=== PATIENT | male | born 2005 | race Two or more races ===

== ENCOUNTER 2024-11-13 14:51 | Inpatient (IN) | payer OTHER ==
[~2024-11-13] VITALS: Ht 175.3 cm; Wt 132.0 kg
--- NOTE | 2024-11-13 16:09 | NUR ---
SE RECIBE PTE ALERTA Y ORIENTADO X3 EL MISMO REFIERE DIARREAS X2 EN EL GAGE DE [place] Y PRESENTAR LAS MISMAS DESDE HACE SEMANAS. PRESENTA REFERIDO MEDICO DE DRA KEEGAN VALDEZ LA CUAL REFIERE QUE PTE QUE PTE PRESENTA CALCULUS OF GALLBLADDER WT CHRONIC CHOLECYSTITIS WT OBSTUCTION. SE ENTREGA REFERIDO MEDICO A DR AHUMADA Y SE ACOMODA PTE.
[2024-11-13] MEDS ORDERED: 0.9 % SODIUM CHLORIDE 500 ML IV ONE (16:30)
--- NOTE | 2024-11-13 17:00 | NUR ---
SE ORIENTA SOBRE TX A SGEUIR, LA MISMA REFIERE ENTENDER. SE SALONI MUESTRA DE LAB, SE CANALIZA Y SE COLOCA IV FLUIDS
[2024-11-13 17:04] LABS: HEMATOCRIT 43.9 % (39.0-48.0); MEAN CELL VOLUME 84.8 fL (80.0-100.00); MEAN CORPUSCULAR HGB CONC 34.2 g/dl (32.0-36.0); PLATELET COUNT 245 K/uL (150-450); RED BLOOD COUNT 5.18 M/uL (4.00-6.00); RED CELL DISTRIBUTION WIDTH 14.8 % (11.5-14.5)
[2024-11-13 17:25] LABS: ALBUMIN 3.8 gm/dL (3.4-5.0); BILIRUBIN TOTAL 7.87 mg/dL (0.3-1.2); BILIRUBIN,CONJUGATED 5.94 mg/dL (0.0-0.2); BILIRUBIN,UNCONJUGATED 1.93 mg/dL (0.0-0.6); CALCIUM 10.2 mg/dL (8.5-10.1); CREATININE SERUM 1.02 mg/dL (0.70-1.30); GFR 92.19; POTASSIUM 4.21 mEq/L (3.5-5.1); TOTAL PROTEIN 8.8 gm/dL (6.4-8.2)
[2024-11-13] MEDS ORDERED: PIPERACILLIN/TAZOBACTAM SODIUM 3.375 GM in DEXTROSE 5 % IN WATER 100 ML IV SCH (19:07)
[2024-11-13] MEDS ORDERED: FAMOTIDINE/PF 20 MG in 0.9 % SODIUM CHLORIDE 8 ML IV PUSH SCH (19:07)
[2024-11-13] MEDS ORDERED: ONDANSETRON HCL 4 MG in 0.9 % SODIUM CHLORIDE 50 ML IV PRN (19:15)
[2024-11-13] MEDS ORDERED: KETOROLAC TROMETHAMINE 30 MG VIAL IU PRN (19:15)
[2024-11-13] MEDS ORDERED: 0.9 % SODIUM CHLORIDE 1,000 ML IV SCH (19:15)
[2024-11-13 20:13] LABS: PH,URINE 5.5 (5.0-8.0); URINE APPEARANCE Clear; URINE BILIRRUBIN Large (NEGATIVE); URINE BLOOD Negative; URINE COLOR Dark Yellow; URINE GLUCOSE Negative (NEGATIVE); URINE KETONE Trace (NEGATIVE); URINE LEUKOCYTE Trace; URINE NITRATE Negative; URINE PROTEIN Trace (NEGATIVE); URINE UROBILINOGEN 0.2 E.U./dl
[2024-11-13 20:17] LABS: URINE BACTERIA 36.7 uL (0.0-1933); URINE EPITHELIAL CELLS 5.3 uL (0.0-38.8); URINE RBC 10.4 uL (0.0-20.8); URINE WBC 5.2 uL (0.0-23.2)
[2024-11-13 20:53] LABS: URINE CAST 0.58 uL (0.0-1.40)
[2024-11-13 21:23] LABS: INR 1.14; PARTIAL THROMBOPLASTIN TIME 29.8 SECONDS (22.0-34.0); PROTHROMBIN TIME 12.3 SECONDS (9.0-11.5)
[2024-11-13 23:47] VITALS: BP 122/74; O2SAT 99
[2024-11-14] MEDS ORDERED: FAMOTIDINE/PF 20 MG in 0.9 % SODIUM CHLORIDE 8 ML IV PUSH SCH (21:00)
[2024-11-14 21:04] VITALS: BP 120/70; O2SAT 96
[2024-11-15 01:42] VITALS: BP 139/79; O2SAT 98
[2024-11-15 08:38] VITALS: BP 123/75; O2SAT 97
[2024-11-15] MEDS ORDERED: SUGAMMADEX SODIUM 200 MG/2 ML VIAL IV ONE (16:15)
[2024-11-15] MEDS ORDERED: IOVERSOL 320 MG/ML - 50 ML VIAL IV ONE (16:15)
[2024-11-15] MEDS ORDERED: GLUCAGON 1 MG VIAL IV ONE (16:15)
[2024-11-15 17:52] VITALS: BP 132/65; O2SAT 100
[2024-11-16 02:40] VITALS: BP 133/67; O2SAT 95
[2024-11-16 08:39] VITALS: BP 106/67; O2SAT 96
[2024-11-16 16:35] VITALS: BP 141/90
[2024-11-16 18:20] LABS: HEMATOCRIT 40.4 % (39.0-48.0); HEMOGLOBIN 13.8 g/dL (13-16.00); MEAN CELL VOLUME 85.6 fL (80.0-100.00); MEAN CORPUSCULAR HEMOGLOBIN 29.2 pg (27.00-32.0); MEAN CORPUSCULAR HGB CONC 34.1 g/dl (32.0-36.0); PLATELET COUNT 216 K/uL (150-450); RED BLOOD COUNT 4.72 M/uL (4.00-6.00); RED CELL DISTRIBUTION WIDTH 14.8 % (11.5-14.5)
[2024-11-16 19:18] LABS: ALBUMIN 3.5 gm/dL (3.4-5.0); BILIRUBIN,CONJUGATED 8.49 mg/dL (0.0-0.2); BILIRUBIN,UNCONJUGATED 2.1 mg/dL (0.0-0.6); CALCIUM 9.5 mg/dL (8.5-10.1); CREATININE SERUM 1.11 mg/dL (0.70-1.30); GFR 83.62; GLOBULINA 3.8 G/DL (2.4-3.5); POTASSIUM 4.31 mEq/L (3.5-5.1); TOTAL PROTEIN 7.3 gm/dL (6.4-8.2)
[2024-11-16 19:31] LABS: BILIRUBIN TOTAL 10.59 mg/dL (0.3-1.2)
[2024-11-17 01:02] VITALS: BP 133/77; O2SAT 99
[2024-11-17 09:58] VITALS: BP 127/83
[2024-11-17] MEDS ORDERED: DICLOFENAC SODIUM 100 MG SUPP.RECT TOP NR (11:00)
[2024-11-17] MEDS ORDERED: GLUCAGON 1 MG VIAL IV ONE ×2 (14:45→15:00)
[2024-11-17] MEDS ORDERED: IOVERSOL 320 MG/ML - 100 ML VIAL IV ONE (15:00)
[2024-11-18 01:44] VITALS: BP 145/76; O2SAT 97
[2024-11-18 08:58] VITALS: BP 116/68; O2SAT 98
[2024-11-18 16:51] VITALS: BP 134/83
[2024-11-19 01:49] VITALS: BP 131/84; O2SAT 94
[2024-11-19 08:37] VITALS: BP 107/63; O2SAT 97
== END 2024-11-19 11:07 | disposition designated cancer center or children's hospital (05) | DRG 445 ==
LOC: ER 14:54 → SEC-K 21:07 → MEDI 21:07
PROVIDERS: General Practice; Internal Medicine; ADMIT Student in an Organized Health Care Education/Training Program; ATTEND Student in an Organized Health Care Education/Training Program
PROC: BW40ZZZ Ultrasonography of Abdomen (ICD-10-PCS; 2024-11-13)
PROC: BF37ZZZ Magnetic Resonance Imaging (MRI) of Pancreas (ICD-10-PCS; 2024-11-13)
PROC: XFJB8A7 Inspection of Hepatobiliary Duct using Single-use Duodenoscope, New Technology Group 7 (ICD-10-PCS; principal; 2024-11-15 20:00)
PROC: XFJB8A7 Inspection of Hepatobiliary Duct using Single-use Duodenoscope, New Technology Group 7 (ICD-10-PCS; 2024-11-17)
DX: K80.70 Calculus of gallbladder and bile duct without cholecystitis without obstruction (principal); R17 Unspecified jaundice